=== PATIENT | female | born 1990 | race African-American/Black ===

== ENCOUNTER 2017-03-27 08:16 | Emergency (ER) | payer OTHER ==
[~2017-03-27] VITALS: Ht 160 cm; Wt 68.0 kg
[2017-03-27] MEDS ORDERED: NORFLEX100 MG PO (09:15)
[2017-03-27] MEDS ORDERED: NAPROSYN500 MG PO (09:15)
[2017-03-27 09:45] VITALS: BP 127/60
== END 2017-03-27 09:45 | disposition home or self-care (01) ==
LOC: ER 08:16
DX: M43.6 Torticollis (principal); G44.209 Tension-type headache, unspecified, not intractable